=== PATIENT | female | born 1995 | race Caucasian/White ===

== ENCOUNTER 2020-08-28 07:49 | Emergency (ER) | payer BC ==
[~2020-08-28] VITALS: Ht 149 cm; Wt 93.8 kg
[~2020-08-28 07:49] MED LIST: CIPR500T4 PO; FAMO20TA5 PO; HYDR-2890 PO; HYDR-3063 PO; IBUP-65 PO; MUPI22OI29 EXT; OMEP40CA36 PO; ONDA8TAB13 PO; PHEN200T27 PO; PRED20TA PO; SILVADENE; TRAM50TA2
[2020-08-28 08:06] LABS: CLARITY,URINE SL CLOUDY; COLOR,URINE DARK YELLOW; GLUCOSE, URINE (UA) NEGATIVE (NEGATIVE); KETONES,URINE 3+ (NEGATIVE); LEUKOCYTE ESTERASE ,URINE TRACE (NEGATIVE); NITRITE,URINE NEGATIVE (NEGATIVE); PROTEIN,URINE 2+ (NEGATIVE)
[2020-08-28] MEDS ORDERED: LACTATED RINGERS 1,000 ML IV ONE ×2 (08:12→09:07)
[2020-08-28 08:15] LABS: BACTERIA,URINE TRACE /HPF; BILIRUBIN,URINE NEGATIVE (NEGATIVE); RBC,URINE >100 /HPF
[2020-08-28] MEDS ORDERED: KETOROLAC 30 MG/ML VIAL IVP ONE (08:15)
[2020-08-28] MEDS ORDERED: ONDANSETRON 4 MG/2 ML (SDV) Z0FRAN IVP ONE (08:15)
--- NOTE | 2020-08-28 08:26 | ED Back Pain ---
General Chief Complaint: Back Problems Stated Complaint: R LOWER SIDE PAIN Nursing Triage Note: pt presents to ed from home with complaints of r flank pain that woke her up from her sleep at 0230 this am. pt denies n/v/d. pt denies urinary s/s. Nursing Sepsis Screen: No Definite Risk Source of Information: Patient (NISH HERNANDEZ MED STUDENT) History of Present Illness Date Seen by Provider: Aug 28, 2020 Time Seen by Provider: 08:00 Initial Comments Inder is a 24 yo F with history of prior ureterolithiasis at age 12 who complains of right sided back pain. The patient complains of sudden onset severe right flank pain which has been worsening since awakening her at 2 am today. The pain is in the flank wrapping to the lateral abdomen without other radiation. She states this is similar to her previous stone pain. She reports associated nausea and non-bloody vomiting with subsequent chills this morning. Pain has no alleviating or worsening factors. She took ibuprofen without improvement at home. Denies symptoms prior to this morning, denies fever, chest pain, SOB, abdominal pain, constipation, and diarrhea. The patient is currently on her menstrual cycle and states this is her first since she stopped taking her OCP. (NISH HERNANDEZ MED STUDENT) Allergies and Home Medications Allergies Coded Allergies: No Known Drug Allergies (Unverified , 05/30/14) Home Medications Famotidine 20 Mg Tablet, 1 EACH PO BID Prescribed by: NERI GRANT on 05/03/15 154 Hydrocodone/Acetaminophen 1 Each Tablet, 1 EACH PO Q4H PRN for PAIN-BREAKTHROUGH Prescribed by: MERY WESTON on 08/28/20 104 Ibuprofen 200 Mg Tablet, 200 MG PO PRN, (Reported) Mupirocin 22 Gm Oint, 22 GM EXT UD apply sparingly bid x 7 days Prescribed by: NERI GRANT on 05/03/15 154 Omeprazole 40 Mg Capsule.dr, 40 MG PO DAILY Prescribed by: NERI GRANT on 05/30/142011 Ondansetron 4 Mg Tab.rapdis, 4 MG SL Q4H PRN for NAUSEA/VOMITING Prescribed by: MERY WESTON on 08/28/20 1043 Prednisone 20 Mg Tablet, 40 MG PO DAILY Prescribed by: NERI GRANT on 05/03/15 1541 Patient Home Medication List Home Medication List Reviewed: Yes (MERY MORGAN MD) Review of Systems Constitutional: chills; No fever Respiratory: No cough, No short of breath (only d/t pain) Cardiovascular: No chest pain Gastrointestinal: No abdominal pain, No constipation, No diarrhea; nausea, vomiting Musculoskeletal: back pain (right) Skin: No rash (NISH HERNANDEZ STUDENT) Past Sehugkz-Gebtck-Ujkpdp Hx Patient Social History Alcohol Use: Denies Use Recreational Drug Use: No Smoking Status: Current Everyday Smoker Recent Foreign Travel: No Contact w/Someone Who Travel: No Recent Infectious Disease Expo: No Physical Abuse: No Sexual Abuse: No Mistreated: No Fear: No (NISH HERNANDEZ) Immunizations Up To Date Tetanus Booster (TDap): Less than 5yrs (NISH HERNANDEZ) Past Medical History Surgeries: No (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 ) Respiratory: No Cardiac: No Neurological: Yes Concussion Genitourinary: No Kidney Stones Gastrointestinal: Yes Gastroesophageal Reflux, Ulcer, Irritable Bowel Musculoskeletal: No Endocrine: No Cancer: No Psychosocial: Yes Depression Integumentary: No Blood Disorders: No Adverse Reaction/Blood Tranf: No (NISH HERNANDEZ) Family Medical History No Pertinent Family Hx (NISH HERNANDEZ) Physical Exam Vital Signs Vital Signs - First Documented 08/28/20 08:07 Temp 36.4 Pulse 68 Resp 18 B/P (MAP) 141/82 (101) Pulse Ox 99 (MERY MORGAN MD) Vital Signs Capillary Refill : Less Than 3 Seconds (NISH HERNANDEZ STUDENT) Height, Weight, BMI Height: 4'11" Weight: 200lbs. oz. 90.972173lf; 42.00 BMI Method:Stated General Appearance: WD/WN, Moderate Distress, Obese HEENT: PERRL/EOMI Cardiovascular: Regular Rate, Rhythm, No Murmur Respiratory: Lungs Clear, Normal Breath Sounds, No Accessory Muscle Use, No Respiratory Distress, Other (mildly tachypneic) Gastrointestinal: No Organomegaly, No Pulsatile Mass, Non Tender, Soft; No Distended, No Guarding, No Hepatomegaly Back: No CVA Tenderness Neurologic/Psychiatric: Alert, Normal Mood/Affect Skin: Normal Color, Warm/Dry; No Diaphoresis, No Ecchymosis, No Erythema, No Jaundice, No Rash (NISH HERNANDEZ MED STUDENT) Progress/Results/Core Measures Results/Orders Lab Results Laboratory Tests Test 08/28/20 08:00 08/28/20 08:25 Range/Units Urine Color DARK YELLOW Urine Clarity SL CLOUDY Urine pH 6.0 5-9 Urine Specific [place] 1.025 H 1.016-1.022 Urine Protein 2+ H NEGATIVE Urine Glucose (UA) NEGATIVE NEGATIVE Urine Ketones 3+ H NEGATIVE Urine Nitrite NEGATIVE NEGATIVE Urine Bilirubin NEGATIVE NEGATIVE Urine Urobilinogen 0.2 < = 1.0 MG/DL Urine Leukocyte Esterase TRACE H NEGATIVE Urine RBC (Auto) 3+ H NEGATIVE Urine RBC >100 H /HPF Urine WBC 2-5 /HPF Urine Squamous Epithelial Cells 5-10 /HPF Urine Crystals NONE /LPF Urine Bacteria TRACE /HPF Urine Casts NONE /LPF Urine Mucus NEGATIVE /LPF Urine Culture Indicated NO White Blood Count 16.0 H 4.3-11.0 10^3/uL Red Blood Count 5.34 H 3.80-5.11 10^6/uL Hemoglobin 16.0 11.5-16.0 g/dL Hematocrit 46 35-52 % Mean Corpuscular Volume 86 80-99 fL Mean Corpuscular Hemoglobin 30 25-34 pg Mean Corpuscular Hemoglobin Concent 35 32-36 g/dL Red Cell Distribution Width 12.4 10.0-14.5 % Platelet Count 388 130-400 10^3/uL Mean Platelet Volume 10.1 9.0-12.2 fL Immature Granulocyte % (Auto) 0 % Neutrophils (%) (Auto) 88 H 42-75 % Lymphocytes (%) (Auto) 9 L 12-44 % Monocytes (%) (Auto) 3 0-12 % Eosinophils (%) (Auto) 0 0-10 % Basophils (%) (Auto) 0 0-10 % Neutrophils # (Auto) 14.1 H 1.8-7.8 10^3/uL Lymphocytes # (Auto) 1.4 1.0-4.0 10^3/uL Monocytes # (Auto) 0.4 0.0-1.0 10^3/uL Eosinophils # (Auto) 0.0 0.0-0.3 10^3/uL Basophils # (Auto) 0.1 0.0-0.1 10^3/uL Immature Granulocyte # (Auto) 0.1 0.0-0.1 10^3/uL Neutrophils % (Manual) 87 % Lymphocytes % (Manual) 7 % Monocytes % (Manual) 3 % Basophils % (Manual) 1 % Band Neutrophils 1 % Atypical Lymphocytes 1 % Blood Morphology Comment NORMAL Sodium Level 138 135-145 MMOL/L Potassium Level 3.3 L 3.6-5.0 MMOL/L Chloride Level 103 98-107 MMOL/L Carbon Dioxide Level 20 L 21-32 MMOL/L Anion Gap 15 H 5-14 MMOL/L Blood Urea Nitrogen 14 7-18 MG/DL Creatinine 0.92 0.60-1.30 MG/DL Estimat Glomerular Filtration Rate > 60 BUN/Creatinine Ratio 15 Glucose Level 160 H 70-105 MG/DL Calcium Level 9.3 8.5-10.1 MG/DL Corrected Calcium 9.1 8.5-10.1 MG/DL Total Bilirubin 0.4 0.1-1.0 MG/DL Aspartate Amino Transf (AST/SGOT) 16 5-34 U/L Alanine Aminotransferase (ALT/SGPT) 18 0-55 U/L Alkaline Phosphatase 69 40-136 U/L C-Reactive Protein High Sensitivity 0.43 0.00-0.50 MG/DL Total Protein 7.5 6.4-8.2 GM/DL Albumin 4.2 3.2-4.5 GM/DL Serum Test, Qualitative NEGATIVE NEGATIVE (MERY MORGAN MD) My Orders Orders - MERY MORGAN MD Ua Culture If Indicated (08/28/20 07:51) Ketorolac Injection (Toradol Injection) (08/28/20 08:15) Ondansetron Injection (Zofran Injectio (08/28/20 08:15) Ed Iv/Invasive Line Start (08/28/20 08:12) Lactated Ringers (Lr 1000 Ml Iv Solution (08/28/20 08:12) Cbc With Automated Diff (08/28/20 08:12) Comprehensive Metabolic Panel (08/28/20 08:12) Hs C Reactive Protein (08/28/20 08:12) Hcg,Qualitative Serum (08/28/20 08:12) Manual Differential (08/28/20 08:25) Abdomen/Kub 1view (10/7/20 09:12) Hydrocodone/Apap 5/325 Tablet (Lortab 5 (08/28/20 11:15) (MERY MORGAN MD) Medications Given in ED Current Medications Medications Dose Ordered Sig/Karen Route Start Time Stop Time Status Last Admin Dose Admin Acetaminophen/ Hydrocodone Bitart 1 tab ONCE ONCE PO 08/28/20 11:15 08/28/20 11:16 DC 08/28/20 11:21 1 TAB (MERY MORGAN MD) Vital Signs/I&O 08/28/20 08/28/20 08:07 11:15 Temp 36.4 Pulse 68 64 Resp 18 18 B/P (MAP) 141/82 (101) 132/78 Pulse Ox 99 98 (MERY MORGAN MD) Blood Pressure Mean: 101 Progress Progress Note : Time: 08:32 Progress Note Inder is a 24 yo F presenting with severe right flank pain similar to her prior kidney stone 12 years ago. Pain began suddenly at 2 am with nausea and vomiting and has been constant since, non-positional. Patient is stable and afebrile. She appears uncomfortable walking to and sitting in the room. History and physical exam are suspicious for kidney stone, so toradol, fluids, CBC, CMP, and serum have been ordered. Will discuss CT scan if non-. GI pathology including appendicitis, colitis, IBD are less likely with presentation. pathology including ovarian cyst, torsion, ectopic , and endometriosis also unlikely with nontender abdomen. Infectious pathology unlikely with sudden onset high intensity symptoms. -Amari Hernandez, medical student (NISH HERNANDEZ MED STUDENT) Diagnostic Imaging Diagonstic Imaging: Xray Plain Films/CT/US/NM/MRI: abdomen, pelvis Comments x-ray viewed by me and report reviewed. See report below: NAME: INDER [facility] REC#: [id number] PT STATUS: DEP ER : 1995 PHYSICIAN: MERY MORGAN MD ADMIT DATE: 08/28/20/ER Signed Date of Exam:08/28/20 ABDOMEN/KUB 1VIEW INDICATION: Right flank pain FINDINGS: The bowel gas pattern unremarkable. There is stool within the colon. The colonic fecal load is perhaps minimally elevated proximally but no overt constipation or impaction. No bowel obstruction. No suspicious radiodense urinary tract stones. IMPRESSION: No acute appearing abnormality. Dictated by: Dictated on workstation # [id number] Dict: 08/28/20 1008 Trans: 08/28/20 1634 SHEA [id number] Interpreted by: KJ MCCLELLAND Electronically signed by: KJ MCCLELLAND 08/28/20 5535 (MERY MORGAN MD) Departure Impression Primary Impression: Right flank pain Additional Impressions: Leukocytosis Qualified Codes: D72.829 - Elevated white blood cell count, unspecified Nausea and vomiting Qualified Codes: R11.2 - Nausea with vomiting, unspecified Disposition: 01 HOME, SELF-CARE Condition: Improved Departure-Patient Inst. Decision time for Depature: 10:39 (MERY MORGAN MD) Referrals: MYNOR BRYANT MD (PCP/Family) Primary Care Physician Patient Instructions: Kidney Stones in Adults, Severe Abdominal Pain Add. Discharge Instructions: Follow-up with your primary care provider as soon as possible. Please call today for an appointment. Drink plenty of clear liquids. Take Zofran (ondansetron) as prescribed for nausea and vomiting. Use ibuprofen up to 600 mg every 6 hours as needed for your primary pain control. Add hydrocodone as prescribed for pain not controlled by ibuprofen. Return to the emergency room if you have worsening symptoms despite treatment. Strain your urine and bring any stones collected to your follow-up appointment. A kidney stone is suspected but not confirmed at this point without visualizing the kidney stone on CT scan. For this reason follow-up with your primary care provider is important. All discharge instructions reviewed with patient and/or family. Voiced understanding. Scripts Hydrocodone/Acetaminophen (Hydrocodone-Acetamin 5-325 mg) 1 Each Tablet 1 EACH PO Q4H PRN for PAIN-BREAKTHROUGH, #10 TAB Prov: MREY MORGAN MD 08/28/20 Ondansetron (Ondansetron Odt) 4 Mg Tab.rapdis 4 MG SL Q4H PRN for NAUSEA/VOMITING, #10 TAB Prov: MERY MORGAN MD 08/28/20 Work/School Note: Work Release Form Date Seen in the Emergency Department: Aug 28, 2020 Return to Work: Aug 29, 2020 Restrictions: No Restrictions This patient was interviewed and examined along with Amari Hernandez, MS3. I have reviewed MS 3 documentation and agree with his history, physical, and assessments except were otherwise noted. Patient presents with sudden onset of right flank pain that woke her from sleep. She has a nontender abdomen. She has associated nausea and vomiting. Symptoms are reminiscent of her prior ureteral stone. Exam: Gen.: Alert, oriented, mild to moderate distress HEENT: Normocephalic and atraumatic, Heart: Regular rate and rhythm without murmur Lungs: Clear to auscultation bilaterally Abdomen: Soft, nontender, nondistended, normal bowel sounds Back: No CVA tenderness, no musculoskeletal tenderness Skin: Warm and dry without rashes Neuro/psych: Alert, oriented, no focal deficits Labs and urinalysis were reviewed. Patient was treated with Toradol, Zofran, IV fluids. We discussed further evaluation with CT scan. Patient wishes to forego CT scan at this time to spare herself to radiation exposure. She will strain her urine and follow-up with her primary care provider. Return precautions discussed. KUB was obtained prior to discharge which demonstrated no acute abnormalities. Hydrocodone was given prior to dismissal for additional pain control. (MERY MORGAN MD) Copy Copies To 1: JAMI MAX PETER MED STUDENT Aug 28, 2020 08:26 MERY MORGAN MD Aug 28, 2020 10:44
[2020-08-28 08:33] LABS: BASOPHILS # (AUTO) 0.1 10^3/uL (0.0-0.1); BASOPHILS % (AUTO) 0 % (0-10); EOSINOPHILS % (AUTO) 0 % (0-10); HEMATOCRIT 46 % (35-52); LYMPHOCYTES # (AUTO) 1.4 10^3/uL (1.0-4.0); LYMPHOCYTES % (AUTO) 9 % (12-44); MEAN CORPUSCULAR HEMOGLOBIN 30 pg (25-34); MEAN CORPUSCULAR HGB CONC 35 g/dL (32-36); MEAN CORPUSCULAR VOLUME 86 fL (80-99); MEAN PLATELET VOLUME 10.1 fL (9.0-12.2); MONOCYTES # (AUTO) 0.4 10^3/uL (0.0-1.0); MONOCYTES % (AUTO) 3 % (0-12); NEUTROPHILS # (AUTO) 14.1 10^3/uL (1.8-7.8); NEUTROPHILS % (AUTO) 88 % (42-75); PLATELET COUNT 388 10^3/uL (130-400)
[2020-08-28 08:44] LABS: ALBUMIN 4.2 GM/DL (3.2-4.5); CHLORIDE 103 MMOL/L (98-107); POTASSIUM 3.3 MMOL/L (3.6-5.0); SODIUM 138 MMOL/L (135-145)
[2020-08-28 08:45] LABS: CALCIUM 9.3 MG/DL (8.5-10.1)
[2020-08-28 08:46] LABS: ATYPICAL LYMPHOCYTES 1 %; BAND NEUTROPHILS 1 %; BASOPHILS % (MANUAL) 1 %; GLUCOSE 160 MG/DL (70-105); LYMPHOCYTES % (MANUAL) 7 %; MONOCYTES % (MANUAL) 3 %; NEUTROPHILS % (MANUAL) 87 %; RBC MORPH NORMAL
[2020-08-28 08:47] LABS: TOTAL PROTEIN 7.5 GM/DL (6.4-8.2)
[2020-08-28 08:48] LABS: BILIRUBIN,TOTAL 0.4 MG/DL (0.1-1.0); CARBON DIOXIDE 20 MMOL/L (21-32)
[2020-08-28 08:50] LABS: ALKALINE PHOSPHATASE 69 U/L (40-136); CREATININE SERUM 0.92 MG/DL (0.60-1.30); GFR ESTIMATED > 60
[2020-08-28 08:51] LABS: BUN/CREATININE RATIO 15
[2020-08-28 08:53] LABS: ALANINE AMINOTRANSFERASE 18 U/L (0-55)
--- NOTE | 2020-08-28 10:10 | Diagnostic Imaging Report ---
INDICATION: Right flank pain FINDINGS: The bowel gas pattern unremarkable. There is stool within the colon. The colonic fecal load is perhaps minimally elevated proximally but no overt constipation or impaction. No bowel obstruction. No suspicious radiodense urinary tract stones. IMPRESSION: No acute appearing abnormality. Dictated by: Dictated on workstation # [id number]
[2020-08-28] MEDS ORDERED: ONDA4TAB11 SL (10:43)
[2020-08-28] MEDS ORDERED: ACHD5005 PO (10:43)
--- NOTE | 2020-08-28 11:00 | NUR ---
NOTIFIED PT WOULD LIKE SOMETHING ELSE FOR PAIN. AFTER TALKED WITH HER SHE DECIDED NOT TO TAKE SOMETHING.
--- NOTE | 2020-08-28 11:02 | NUR ---
NOW SHE WOULD AGIAN LIKE SOMETHING FOR PAIN. NOTIFIED.
[2020-08-28 11:15] VITALS: BP 132/78
[2020-08-28] MEDS ORDERED: HYDROcodone/APAP 5 MG/325 MG (LORTAB) TAB PO ONE (11:15)
== END 2020-08-28 11:15 | disposition home or self-care (01) ==
LOC: EDUNIT# 07:49 → ER 07:51
DX: R10.9 Unspecified abdominal pain (principal); D72.829 Elevated white blood cell count, unspecified; R11.2 Nausea with vomiting, unspecified; K21.9 Gastro-esophageal reflux disease without esophagitis; F17.200 Nicotine dependence, unspecified, uncomplicated; Z79.52 Long term (current) use of systemic steroids; Z87.820 Personal history of traumatic brain injury
CPT/HCPCS: 36415; 74018; 80053; 81000; 84703; 85007; 85027; 86141

== ENCOUNTER 2021-07-21 03:44 | Emergency (ER) | payer BC ==
[~2021-07-21] VITALS: Ht 149.9 cm; Wt 94.3 kg
[~2021-07-21 03:44] MED LIST changes: +ACHD5005 PO; +ONDA4TAB11 SL
[2021-07-21] MEDS ORDERED: LACTATED RINGERS 1,000 ML IV ONE ×2 (04:00→05:45)
[2021-07-21] MEDS ORDERED: KETOROLAC 30 MG/ML VIAL IVP ONE (04:00)
[2021-07-21] MEDS ORDERED: ONDANSETRON 4 MG/2 ML (SDV) Z0FRAN IVP ONE (04:00)
[2021-07-21] MEDS ORDERED: fentaNYL INJ 100 MCG/2 ML AMP IVP ONE (04:15)
[2021-07-21 05:07] LABS: BASOPHILS # (AUTO) 0.1 10^3/uL (0.0-0.1); BASOPHILS % (AUTO) 1 % (0-10); EOSINOPHILS # (AUTO) 0.3 10^3/uL (0.0-0.3); EOSINOPHILS % (AUTO) 2 % (0-10); HEMATOCRIT 44 % (35-52); HEMOGLOBIN 15.1 g/dL (11.5-16.0); LYMPHOCYTES # (AUTO) 5.4 10^3/uL (1.0-4.0); LYMPHOCYTES % (AUTO) 34 % (12-44); MEAN CORPUSCULAR HEMOGLOBIN 31 pg (25-34); MEAN CORPUSCULAR HGB CONC 34 g/dL (32-36); MEAN CORPUSCULAR VOLUME 91 fL (80-99); MONOCYTES # (AUTO) 1.1 10^3/uL (0.0-1.0); MONOCYTES % (AUTO) 7 % (0-12); NEUTROPHILS # (AUTO) 8.9 10^3/uL (1.8-7.8); NEUTROPHILS % (AUTO) 56 % (42-75); PLATELET COUNT 394 10^3/uL (130-400); WHITE BLOOD COUNT 15.8 10^3/uL (4.3-11.0)
[2021-07-21 05:10] LABS: POTASSIUM 3.4 MMOL/L (3.6-5.0)
[2021-07-21 05:11] LABS: CALCIUM 9.2 MG/DL (8.5-10.1)
[2021-07-21] MEDS ORDERED: morphine INJ 10 MG/ML 1ML (SYR OR VIAL) IVP STA ×2 (05:12→07:07)
[2021-07-21 05:13] LABS: TOTAL PROTEIN 7.5 GM/DL (6.4-8.2)
[2021-07-21 05:14] LABS: BILIRUBIN,TOTAL 0.3 MG/DL (0.1-1.0)
[2021-07-21 05:16] LABS: CREATININE SERUM 0.77 MG/DL (0.60-1.30)
[2021-07-21] MEDS ORDERED: PROMETHAZINE INJ 25 MG/ML (PHENERGAN) AMP IVP ONE (05:45)
[2021-07-21 05:49] LABS: ATYPICAL LYMPHOCYTES 1 %; BAND NEUTROPHILS 1 %; LYMPHOCYTES % (MANUAL) 38 %; MONOCYTES % (MANUAL) 7 %; NEUTROPHILS % (MANUAL) 53 %
--- NOTE | 2021-07-21 06:30 | ED Abdominal Pain ---
General Chief Complaint: Back Problems Stated Complaint: POSS KIDNEY STONE Nursing Triage Note: Pt ambulates to ED 6 with c/o left flank pain, rating 10/10, with accompanying nausea/vomiting. Pt reports it started Wednesday, she went to clinic and was prescribed medication for a kidney stone. Source of Information: Patient Exam Limitations: No Limitations (MERY MORGAN MD) History of Present Illness Date Seen by Provider: Jul 21, 2021 Time Seen by Provider: 03:50 Initial Comments This 25-year-old young lady presents to the emergency room with complaints of left flank pain, nausea, vomiting and hematuria. She was seen in the clinic on Wednesday when symptoms started and was thought to have a kidney stone. Symptoms are consistent with prior kidney stones. (MERY MORGAN MD) Allergies and Home Medications Allergies Coded Allergies: No Known Drug Allergies (Unverified , 05/30/14) Home Medications Famotidine 20 Mg Tablet, 1 EACH PO BID Prescribed by: NERI GRANT on 05/03/15 154 Hydrocodone/Acetaminophen 1 Each Tablet, 1 EACH PO Q4H PRN for PAIN-BREAKTHROUGH Prescribed by: MERY WESTON on 08/28/20 1044 Ibuprofen 200 Mg Tablet, 200 MG PO PRN, (Reported) Mupirocin 22 Gm Oint, 22 GM EXT UD apply sparingly bid x 7 days Prescribed by: NERI GRANT on 05/03/15 154 Omeprazole 40 Mg Capsule.dr, 40 MG PO DAILY Prescribed by: NERI GRANT on 05/30/142011 Ondansetron 4 Mg Tab.rapdis, 4 MG SL Q4H PRN for NAUSEA/VOMITING Prescribed by: MERY WESTON on 08/28/20 104 Prednisone 20 Mg Tablet, 40 MG PO DAILY Prescribed by: NERI GRANT on 05/03/15 154 Patient Home Medication List Home Medication List Reviewed: Yes (MERY MORGAN MD) Review of Systems Review of Systems Constitutional: no symptoms reported EENTM: No Symptoms Reported Respiratory: No Symptoms Reported Cardiovascular: No Symptoms Reported Gastrointestinal: See HPI Genitourinary: See HPI Musculoskeletal: no symptoms reported Skin: no symptoms reported Psychiatric/Neurological: No Symptoms Reported Endocrine: No Symptoms Reported (MREY MORGAN MD) Past Uknqhmq-Hjzhgv-Twiafs Hx Patient Social History Tobacco Use?: No E-Cig or Vaping type used: Nicotine Use of E-Cig and/or Vaping Matt: Current Everyday User Substance use?: No Alcohol Use?: No Pt feels they are or have been: No (MERY MORGAN MD) Immunizations Up To Date Tetanus Booster (TDap): Less than 5yrs COVID19 Vaccine Cream Tester: No Vaccine (MERY MORGAN MD) Past Medical History Surgeries: No (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 ) Respiratory: No Cardiac: No Neurological: Yes Concussion Genitourinary: Yes Kidney Stones Gastrointestinal: Yes Gastroesophageal Reflux, Ulcer, Irritable Bowel Musculoskeletal: No Endocrine: No HEENT: No Cancer: No Psychosocial: Yes Depression Integumentary: No Blood Disorders: No Adverse Reaction/Blood Tranf: No (MERY MORGAN MD) Family Medical History No Pertinent Family Hx (MERY MORGAN MD) Physical Exam Vital Signs Vital Signs - First Documented 07/21/21 03:57 Temp 35.9 Pulse 85 Resp 24 B/P (MAP) 159/102 (121) Pulse Ox 97 O2 Delivery Room Air (PAUL VICTORIA) Vital Signs Capillary Refill : (MERY MORGAN MD) Height/Weight/BMI Height: 4'11" Weight: 200lbs. oz. 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, no motor/sensory deficits, alert, normal mood/affect, oriented x 3 Skin: normal color, warm/dry (MERY MORGAN MD) Progress/Results/Core Measures Results/Orders Lab Results Laboratory Tests Test 07/21/21 04:00 07/21/21 06:35 Range/Units White Blood Count 15.8 H 4.3-11.0 10^3/uL Red Blood Count 4.88 3.80-5.11 10^6/uL Hemoglobin 15.1 11.5-16.0 g/dL Hematocrit 44 35-52 % Mean Corpuscular Volume 91 80-99 fL Mean Corpuscular Hemoglobin 31 25-34 pg Mean Corpuscular Hemoglobin Concent 34 32-36 g/dL Red Cell Distribution Width 12.9 10.0-14.5 % Platelet Count 394 130-400 10^3/uL Mean Platelet Volume 11.0 9.0-12.2 fL Immature Granulocyte % (Auto) 0 % Neutrophils (%) (Auto) 56 42-75 % Lymphocytes (%) (Auto) 34 12-44 % Monocytes (%) (Auto) 7 0-12 % Eosinophils (%) (Auto) 2 0-10 % Basophils (%) (Auto) 1 0-10 % Neutrophils # (Auto) 8.9 H 1.8-7.8 10^3/uL Lymphocytes # (Auto) 5.4 H 1.0-4.0 10^3/uL Monocytes # (Auto) 1.1 H 0.0-1.0 10^3/uL Eosinophils # (Auto) 0.3 0.0-0.3 10^3/uL Basophils # (Auto) 0.1 0.0-0.1 10^3/uL Immature Granulocyte # (Auto) 0.1 0.0-0.1 10^3/uL Neutrophils % (Manual) 53 % Lymphocytes % (Manual) 38 % Monocytes % (Manual) 7 % Band Neutrophils 1 % Atypical Lymphocytes 1 % Sodium Level 140 135-145 MMOL/L Potassium Level 3.4 L 3.6-5.0 MMOL/L Chloride Level 108 H 98-107 MMOL/L Carbon Dioxide Level 21 21-32 MMOL/L Anion Gap 11 5-14 MMOL/L Blood Urea Nitrogen 13 7-18 MG/DL Creatinine 0.77 0.60-1.30 MG/DL Estimat Glomerular Filtration Rate 91 BUN/Creatinine Ratio 17 Glucose Level 111 H 70-105 MG/DL Calcium Level 9.2 8.5-10.1 MG/DL Corrected Calcium 9.2 8.5-10.1 MG/DL Total Bilirubin 0.3 0.1-1.0 MG/DL Aspartate Amino Transf (AST/SGOT) 17 5-34 U/L Alanine Aminotransferase (ALT/SGPT) 16 0-55 U/L Alkaline Phosphatase 61 40-136 U/L Total Protein 7.5 6.4-8.2 GM/DL Albumin 4.0 3.2-4.5 GM/DL Serum Test, Qualitative NEGATIVE NEGATIVE Urine Color YELLOW Urine Clarity CLOUDY Urine pH 6.0 5-9 Urine Specific [place] >=1.030 1.016-1.022 Urine Protein 1+ H NEGATIVE Urine Glucose (UA) NEGATIVE NEGATIVE Urine Ketones 1+ H NEGATIVE Urine Nitrite NEGATIVE NEGATIVE Urine Bilirubin NEGATIVE NEGATIVE Urine Urobilinogen 1.0 < = 1.0 MG/DL Urine Leukocyte Esterase NEGATIVE NEGATIVE Urine RBC (Auto) 3+ H NEGATIVE Urine RBC 50-100 H /HPF Urine WBC 5-10 H /HPF Urine Squamous Epithelial Cells 10-25 H /HPF Urine Crystals PRESENT H /LPF Urine Amorphous Sediment FEW EDOUARD URATES H /LPF Urine Bacteria FEW H /HPF Urine Casts NONE /LPF Urine Mucus NEGATIVE /LPF Urine Culture Indicated YES (PAUL VICTORIA) My Orders Orders - PAUL VICTORIA Morphine Injection (Morphine Injection (07/21/21 07:07) Ceftriaxone (Rocephin) (07/21/21 07:15) Oxycodone/Apap 5/325mg Tablet (Percocet (07/21/21 07:30) Abdomen/Kub 1[place] (07/21/21 07:17) (PAUL VICTORIA) Medications Given in ED Current Medications Medications Dose Ordered Sig/Karen Route Start Time Stop Time Status Last Admin Dose Admin Fentanyl Citrate 75 mcg ONCE ONCE IVP 07/21/21 04:15 07/21/21 04:16 DC 07/21/21 04:20 75 MCG Ketorolac Tromethamine 30 mg ONCE ONCE IVP 07/21/21 04:00 07/21/21 04:01 DC 07/21/21 04:05 30 MG Lactated Ringer's 1,000 ml @ 0 mls/hr Q0M ONCE IV 07/21/21 04:00 07/21/21 04:01 DC 07/21/21 04:04 0 MLS/HR Lactated Ringer's 1,000 ml @ 0 mls/hr Q0M ONCE IV 07/21/21 05:45 07/21/21 05:46 DC 07/21/21 05:40 0 MLS/HR Ondansetron HCl 8 mg ONCE ONCE IVP 07/21/21 04:00 07/21/21 04:01 DC 07/21/21 04:05 8 MG Promethazine HCl 25 mg ONCE ONCE IVP 07/21/21 05:45 07/21/21 05:46 DC 07/21/21 05:40 25 MG (PAUL VICTORIA) Vital Signs/I&O 07/21/21 03:57 Temp 35.9 Pulse 85 Resp 24 B/P (MAP) 159/102 (121) Pulse Ox 97 O2 Delivery Room Air (PAUL VICTORIA) Blood Pressure Mean: 121 Progress Progress Note : Time: 06:33 Progress Note Patient's pain was treated with Toradol. Refractory pain was treated with fentanyl and morphine. Nausea was treated with Zofran followed by Phenergan. IV fluids were infused. CT scan report is pending. (MERY MORGAN MD) Progress Note : Time: 07:18 Progress Note Assumed care of the patient at shift change. She says her pain was better but is now starting amount again. Suspect based on its position on the CT she is trying to pass it over the ureterovesicular junction. Plan to get a KUB and give her 6 mg of morphine as well as 2 Percocets for longer-term coverage. If we get the patient's pain under control adequately we will have her follow-up with urologist and she says she has a history of multiple kidney stones. (PAUL VICTORIA) Diagnostic Imaging Diagonstic Imaging: CT Plain Films/CT/US/NM/MRI: abdomen, pelvis Comments NAME: INDER DORANTES [facility] REC#: [id number] PT STATUS: REG ER : 1995 PHYSICIAN: MERY MORGAN MD ADMIT DATE: 07/21/21/ER Draft Date of Exam:07/21/21 CT ABD/PELVIS WO(KIDNEY STONE) PROCEDURE: CT urinary tract, rule out kidney stone. TECHNIQUE: Multiple contiguous axial images were obtained through the abdomen and pelvis without the use of intravenous contrast. Auto Exposure Controls were utilized during the CT exam to meet ALARA standards for radiation dose reduction. INDICATION: Right flank pain COMPARISON: 05/30/2014 Unenhanced images of the liver, gallbladder, pancreas, adrenal glands and spleen are unremarkable. There is mild left hydronephrosis with an approximately 0.2 cm calcification now present at the left ureterovesical junction which was not seen on the previous study. Kidneys are otherwise unremarkable. There is no free fluid seen within the abdomen or pelvis. There is no evidence of appendiceal region inflammation. No bladder stone is seen. IMPRESSION: 0.2 cm calculus at the left ureterovesical junction associated with mild left hydronephrosis and likely represents an at least partially obstructing calculus. Otherwise, no acute abnormality is detected. Dictated on workstation # [id number] Dict: 07/21/21 0647 Trans: 07/21/21 0651 CVB [id number] Interpreted by: KJ DEJESUS MD Electronically signed by: Reviewed: Reviewed by Me (PAUL VICTORIA) Departure Impression Primary Impression: Ureteral calculus Disposition: 01 HOME, SELF-CARE Condition: Stable Departure-Patient Inst. Decision time for Depature: 07:12 (PAUL VICTORIA) Referrals: MYNOR BRYANT MD (PCP/Family) Primary Care Physician NOÉ ARGUETA MD Patient Instructions: Kidney Stones (DC) Add. Discharge Instructions: Drink lots of fluids. Tylenol 650 mg every 8 hours as needed for pain. Motrin 800 mg every 8 hours as needed for pain. Heat applied to the back as needed. Oxycodone 1-2 tablets every 4 hours as necessary for breakthrough pain. Flomax 1 capsule daily until you pass the stones. Ondansetron 1 tablet every 6 hours under the tongue as necessary for nausea and/or vomiting. Keflex 1 capsule twice a day for the next week to treat possible UTI. Strain your urine using the strainer to see when the stones pass. Occasionally stones will break up and not be caught in the strainer. Symptoms should resolve 1 to 2 days after the passing of stones. If your symptoms are going on into early next week then I suggest you follow-up with Dr. Argueta, urology. Return to the nearest ER if you are having intractable pain and/or nausea, fever etc. All discharge instructions reviewed with patient and/or family. Voiced understanding. Scripts Cephalexin (Cephalexin) 500 Mg Tablet 500 MG PO BID for 7 Days, #14 TAB 0 Refills Prov: PAUL VICTORIA 07/21/21 Tamsulosin HCl (Flomax) 0.4 Mg Cap 0.4 MG PO DAILY for 7 Days, #7 CAP 0 Refills Prov: PAUL VICTORIA 07/21/21 Ondansetron (Ondansetron Odt) 4 Mg Tab.rapdis 4 MG PO Q6H PRN for NAUSEA/VOMITING, #12 TAB 0 Refills Prov: PAUL VICTORIA 07/21/21 Oxycodone HCl/Acetaminophen (Percocet 7.5-325 mg Tablet) 1 Each Tablet 1-2 TAB PO Q4H PRN for PAIN-MODERATE MDD 4 TABS for 3 Days, #30 TAB 0 Refills Prov: PAUL VICTORIA 07/21/21 Work/School Note: Work Release Form Date Seen in the Emergency Department: Jul 21, 2021 Return to Work: Jul 24, 2021 Restrictions: No Restrictions Other Restrictions Listed Below: May return sooner if symptom-free. Copy Copies To 1: NOÉ ARGUETA MD, JOSHUA T MD Jul 21, 2021 06:30 PAUL VICTORIA Jul 21, 2021 07:11
[2021-07-21 06:42] LABS: CLARITY,URINE CLOUDY; COLOR,URINE YELLOW; GLUCOSE, URINE (UA) NEGATIVE (NEGATIVE); KETONES,URINE 1+ (NEGATIVE); LEUKOCYTE ESTERASE ,URINE NEGATIVE (NEGATIVE); NITRITE,URINE NEGATIVE (NEGATIVE); PROTEIN,URINE 1+ (NEGATIVE)
--- NOTE | 2021-07-21 06:51 | Diagnostic Imaging Report ---
PROCEDURE: CT urinary tract, rule out kidney stone. TECHNIQUE: Multiple contiguous axial images were obtained through the abdomen and pelvis without the use of intravenous contrast. Auto Exposure Controls were utilized during the CT exam to meet ALARA standards for radiation dose reduction. INDICATION: Right flank pain COMPARISON: 05/30/2014 Unenhanced images of the liver, gallbladder, pancreas, adrenal glands and spleen are unremarkable. There is mild left hydronephrosis with an approximately 0.2 cm calcification now present at the left ureterovesical junction which was not seen on the previous study. Kidneys are otherwise unremarkable. There is no free fluid seen within the abdomen or pelvis. There is no evidence of appendiceal region inflammation. No bladder stone is seen. IMPRESSION: 0.2 cm calculus at the left ureterovesical junction associated with mild left hydronephrosis and likely represents an at least partially obstructing calculus. Otherwise, no acute abnormality is detected. Dictated by: Dictated on workstation # [id number]
[2021-07-21 06:55] LABS: AMORPHOUS SEDIMENT,UR FEW AMOR URATES /LPF; BACTERIA,URINE FEW /HPF; BILIRUBIN,URINE NEGATIVE (NEGATIVE); RBC,URINE 50-100 /HPF
[2021-07-21] MEDS ORDERED: cefTRIAXone 1,000 MG in WATER (STERILE) FOR INJECTION 10 ML IV ONE (07:15)
[2021-07-21] MEDS ORDERED: oxyCODONE/APAP 5/325MG (PERCOCET 5) TABLET ONE (07:19)
[2021-07-21] MEDS ORDERED: TMSL.4C PO (07:22)
[2021-07-21] MEDS ORDERED: CEPH500T PO (07:22)
[2021-07-21] MEDS ORDERED: OXYC1TAB16 PO (07:22)
[2021-07-21] MEDS ORDERED: ONDA4TAB11 PO (07:22)
[2021-07-21] MEDS ORDERED: oxyCODONE/APAP 5/325MG (PERCOCET 5) TABLET PO ONE (07:30)
--- NOTE | 2021-07-21 07:58 | Diagnostic Imaging Report ---
INDICATION: Urinary tract calculus Supine image of the abdomen is obtained with comparison made to study of 08/28/2020. Bowel gas pattern is unremarkable. There is no evidence of free intraperitoneal gas or pneumatosis. No pathologic abdominal calcification is seen. IMPRESSION: No acute abnormality. Dictated by: Dictated on workstation # [id number]
[2021-07-21 08:16] VITALS: BP 124/87
== END 2021-07-21 08:16 | disposition home or self-care (01) ==
LOC: EDUNIT# 03:44 → ER 03:47
DX: N13.2 Hydronephrosis with renal and ureteral calculous obstruction (principal); K21.9 Gastro-esophageal reflux disease without esophagitis; F17.290 Nicotine dependence, other tobacco product, uncomplicated; Z87.820 Personal history of traumatic brain injury; Z79.899 Other long term (current) drug therapy; Z79.52 Long term (current) use of systemic steroids
CPT/HCPCS: 36415; 74018; 74176; 80053; 81000; 84703; 85007; 85027; 87088

== ENCOUNTER 2022-02-06 05:29 | Outpatient (CLI) | payer BC ==
[~2022-02-06] VITALS: Ht 149.9 cm; Wt 90.9 kg
[~2022-02-06 05:29] MED LIST changes: +CEPH500T PO; +ONDA4TAB11 PO; +OXYC1TAB16 PO; +TMSL.4C PO
== END 2022-02-09 14:23 | disposition home or self-care (01) ==
LOC: PREOP 05:29
PROVIDERS: ATTEND Otolaryngology Otolaryngology/Facial Plastic Surgery
DX: Z01.818 Encounter for other preprocedural examination (principal)

== ENCOUNTER 2022-02-13 07:06 | Day surgery (SDC) | payer BC ==
[2022-02-13] VITALS (12 sets, daily range): BP systolic 95–122; BP diastolic 48–91
[~2022-02-13] VITALS: Ht 149.9 cm; Wt 90.9 kg
[2022-02-13] MEDS ORDERED: LACTATED RINGERS 1,000 ML IV PRN (07:15)
[2022-02-13 07:43] LABS: BASOPHILS # (AUTO) 0.1 10^3/uL (0.0-0.1); BASOPHILS % (AUTO) 1 % (0-10); EOSINOPHILS # (AUTO) 0.2 10^3/uL (0.0-0.3); EOSINOPHILS % (AUTO) 2 % (0-10); HEMATOCRIT 43 % (35-52); LYMPHOCYTES # (AUTO) 2.1 10^3/uL (1.0-4.0); LYMPHOCYTES % (AUTO) 21 % (12-44); MEAN CORPUSCULAR HEMOGLOBIN 30 pg (25-34); MEAN CORPUSCULAR HGB CONC 35 g/dL (32-36); MEAN CORPUSCULAR VOLUME 88 fL (80-99); MEAN PLATELET VOLUME 10.3 fL (9.0-12.2); MONOCYTES # (AUTO) 0.6 10^3/uL (0.0-1.0); MONOCYTES % (AUTO) 6 % (0-12); NEUTROPHILS # (AUTO) 7.1 10^3/uL (1.8-7.8); NEUTROPHILS % (AUTO) 71 % (42-75); PLATELET COUNT 297 10^3/uL (130-400)
[2022-02-13] MEDS ORDERED: MIDAZOLAM 2 MG/2 ML (VERSED) VIAL ONE (07:50)
[2022-02-13 07:55] LABS: EOSINOPHILS % (MANUAL) 1 %; LYMPHOCYTES % (MANUAL) 18 %; MONOCYTES % (MANUAL) 7 %; NEUTROPHILS % (MANUAL) 74 %; RBC MORPH NORMAL
[2022-02-13] MEDS ORDERED: MIDAZOLAM 2 MG/2 ML (VERSED) VIAL IVP ONE (08:00)
[2022-02-13] MEDS ORDERED: ROCURONIUM 10 MG/ML 5 ML SYRINGE IV ONE (08:01)
[2022-02-13] MEDS ORDERED: proPOfol 200 MG/20 ML (DIPRIVAN) VIAL IV ONE (08:01)
[2022-02-13] MEDS ORDERED: LIDOCAINE PF 2% 5 ML (XYLOCAINE) VIAL ONE (08:01)
[2022-02-13] MEDS ORDERED: fentaNYL INJ 100 MCG/2 ML AMP ONE ×2 (08:01→08:44)
[2022-02-13] MEDS ORDERED: ONDANSETRON 4 MG/2 ML (SDV) Z0FRAN ONE ×2 (08:01→10:20)
--- NOTE | 2022-02-13 08:59 | Anesthesia-General Post-Op ---
General Patient Condition Mental Status/LOC: Same as Preop Cardiovascular: Satisfactory Nausea/Vomiting: Absent Respiratory: Satisfactory Pain: Controlled Complications: Absent Post Op Complications Complications None Follow Up Care/Instructions Patient Instructions None needed. Anesthesia/Patient Condition Patient Condition Patient is doing well, no complaints, stable vital signs, no apparent adverse anesthesia problems. No complications reported per nursing. SHARI LUDWIG CRNA Feb 13, 2022 08:59
[2022-02-13] MEDS ORDERED: ONDANSETRON 4 MG/2 ML (SDV) Z0FRAN IVP PRN (09:00)
[2022-02-13] MEDS ORDERED: MEPERIDINE (DEMEROL) INJ 50 MG/ML IVP ONE (09:00)
[2022-02-13] MEDS ORDERED: PROMETHAZINE INJ 25 MG/ML (PHENERGAN) AMP IVP ONE (09:00)
[2022-02-13] MEDS ORDERED: morphine INJ 10 MG/ML 1ML (SYR OR VIAL) IVP ONE (09:00)
--- NOTE | 2022-02-13 09:02 | Progress Note-Post Operative ---
Post-Operative Progess Note Surgeon (s)/Hearse Driver (s) Surgeon PEYTON MARSHALL MD Hearse Driver n/a Pre-Operative Diagnosis Rec Tonsillitis Post-Operative Diagnosis same Post-Op Procedure Note Date of Procedure: Feb 13, 2022 Name of Procedure Performed: Tonsillectomy Description & Findings Description and Findings: n/a Anesthesia Type get Estimated Blood Loss minimal Packing none. Specimen(s) collected/removed tonsils PEYTON MARSHALL MD Feb 13, 2022 09:02
--- NOTE | 2022-02-13 09:02 | Progress Note-Pre Operative ---
Pre-Operative Progress Note H&P Reviewed The H&P was reviewed, patient examined and no changes noted. Date Seen by Provider: Feb 13, 2022 Time Seen by Provider: 07:30 Date H&P Reviewed: Feb 13, 2022 Time H&P Reviewed: 07:30 Pre-Operative Diagnosis: Rec Tonsillitis PEYTON MARSHALL MD Feb 13, 2022 09:02
[2022-02-13] MEDS ORDERED: NS IV 1000 ML 1,000 ML IV SCH (09:15)
[2022-02-13] MEDS ORDERED: APAP 325 MG/10.15 ML LIQ (TYLENOL) UDC PO PRN (09:15)
[2022-02-13] MEDS ORDERED: HYDROcodone/APAP 7.5MG-325 MG/15 ML (LORTAB) UDC PO PRN (09:15)
[2022-02-13] MEDS ORDERED: AMOX250S5 PO (09:43)
[2022-02-13] MEDS ORDERED: HYDR15SO8 PO (09:43)
[2022-02-13] MEDS ORDERED: TETRACAINESUCKERS MT (09:43)
[2022-02-13] MEDS ORDERED: DEXAINTSOL PO (09:43)
[2022-02-13] MEDS ORDERED: ONDANSETRON 4 MG/2 ML (SDV) Z0FRAN IVP ONE (10:30)
[2022-02-13] MEDS ORDERED: HYDROcodone/APAP 7.5MG-325 MG/15 ML (LORTAB) UDC ONE (11:03)
== END 2022-02-13 12:00 | disposition home or self-care (01) ==
LOC: SDC 07:06
PROVIDERS: ATTEND Otolaryngology Otolaryngology/Facial Plastic Surgery
DX: J35.01 Chronic tonsillitis (principal); J35.9 Chronic disease of tonsils and adenoids, unspecified; R59.0 Localized enlarged lymph nodes; A42.9 Actinomycosis, unspecified; E66.01 Morbid (severe) obesity due to excess calories; F17.290 Nicotine dependence, other tobacco product, uncomplicated; Z79.2 Long term (current) use of antibiotics; Z68.41 Body mass index [BMI] 40.0-44.9, adult
CPT/HCPCS: 36415; 84703; 85007; 85027; 87081; 88304